=== PATIENT | male | born 1965 | race Caucasian/White ===

== ENCOUNTER 2021-02-05 09:37 | Outpatient (CLI) | payer OTHER, SELFPAY ==
[2021-02-05 11:13] LABS: Alanine Aminotransferase 29 U/L (4-50); Albumin Level 4.4 g/dL (3.5-5.1); Alkaline Phosphatase 48 U/L (38-126); Anion Gap 9 mmol/L (8-16); Aspartate Amino Transferase 36 U/L (17-59); Bilirubin,Total 0.6 mg/dL (0.2-1.3); Blood Urea Nitrogen 11 mg/dL (9-20); Calcium 9.3 mg/dL (8.4-10.2); Carbon Dioxide 26 mmol/L (22-30); Chloride 106 mmol/L (98-107); Cholesterol 212 mg/dL (0-200); Estimated Glomerular Filt Rate > 60; Glucose 254 mg/dL (75-110); HDL Direct 29 mg/dL; Potassium 4.1 mmol/L (3.4-5.0); Sodium 141 mmol/L (137-145); Triglycerides 394 mg/dL (<150)
[2021-02-05 11:15] LABS: Hemoglobin A1C 9.2 % (<5.7)
[2021-02-05 11:27] LABS: LDL Cholesterol Direct 103 mg/dL
[2021-02-05 11:43] LABS: Prostate Specific Antigen 0.6 ng/mL (< OR = 4.0)
== END 2021-02-05 09:38 | disposition home or self-care (01) ==
PROVIDERS: PCP Internal Medicine; Visit Provider Nurse Practitioner
DX: E11.9 Type 2 diabetes mellitus without complications (principal); E78.5 Hyperlipidemia, unspecified; Z12.5 Encounter for screening for malignant neoplasm of prostate
CPT/HCPCS: 36415; 80053; 80061; 83036; 84153; G0103

== ENCOUNTER 2021-09-10 09:49 | Outpatient (CLI) | payer BC, SELFPAY ==
[2021-09-10 10:31] LABS: Hemoglobin A1C 7.4 % (<5.7)
[2021-09-10 10:32] LABS: Alanine Aminotransferase 26 U/L (4-50); Albumin Level 4.5 g/dL (3.5-5.1); Alkaline Phosphatase 39 U/L (38-126); Anion Gap 6 mmol/L (8-16); Aspartate Amino Transferase 29 U/L (17-59); Bilirubin,Total 0.6 mg/dL (0.2-1.3); Blood Urea Nitrogen 19 mg/dL (9-20); Calcium 9.4 mg/dL (8.4-10.2); Carbon Dioxide 24 mmol/L (22-30); Chloride 107 mmol/L (98-107); Cholesterol 155 mg/dL (0-200); Estimated Glomerular Filt Rate > 60; Glucose 164 mg/dL (65-110); HDL Direct 26 mg/dL; Potassium 4.5 mmol/L (3.4-5.0); Sodium 137 mmol/L (137-145); Triglycerides 327 mg/dL (<150)
[2021-09-10 10:43] LABS: LDL Cholesterol Direct 82 mg/dL
== END 2021-09-10 09:50 | disposition home or self-care (01) ==
LOC: ANHLAB 09:51
PROVIDERS: PCP Internal Medicine; Visit Provider Nurse Practitioner
DX: E78.5 Hyperlipidemia, unspecified (principal); E11.9 Type 2 diabetes mellitus without complications
CPT/HCPCS: 36415; 80053; 80061; 83036

== ENCOUNTER 2022-03-11 09:48 | Outpatient (CLI) | payer BC, SELFPAY ==
[2022-03-11 10:45] LABS: Alanine Aminotransferase 28 U/L (6-50); Albumin Level 4.8 g/dL (3.5-5.1); Alkaline Phosphatase 48 U/L (38-126); Anion Gap 13 mmol/L (8-16); Aspartate Amino Transferase 28 U/L (17-59); Bilirubin,Total 0.7 mg/dL (0.2-1.3); Blood Urea Nitrogen 19 mg/dL (9-20); Carbon Dioxide 24 mmol/L (22-30); Chloride 99 mmol/L (98-107); Cholesterol 179 mg/dL (0-200); Estimated Glomerular Filt Rate > 60; Glucose 197 mg/dL (65-110); HDL Direct 29 mg/dL; Potassium 3.9 mmol/L (3.4-5.0); Sodium 136 mmol/L (137-145); Triglycerides 499 mg/dL (<150)
[2022-03-11 10:56] LABS: LDL Cholesterol Direct 70 mg/dL
[2022-03-11 11:16] LABS: Prostate Specific Antigen 0.7 ng/mL (< OR = 4.0)
[2022-03-11 11:28] LABS: Hemoglobin A1C 8.3 % (<5.7)
[2022-03-11 11:29] LABS: Calcium 7.7 mg/dL (8.4-10.2)
[2022-03-11 12:45] LABS: Creatinine Urine 106.2 mg/dL
[2022-03-11 12:49] LABS: MALB Creatinine Ratio 7.6 mg/g (0-30); Microalbumin Urine Random 8.1 mg/L (0-16.7)
== END 2022-03-11 09:49 | disposition home or self-care (01) ==
LOC: ANHLAB 09:50
PROVIDERS: PCP Internal Medicine; Visit Provider Internal Medicine
DX: E11.9 Type 2 diabetes mellitus without complications (principal); I10 Essential (primary) hypertension; Z79.4 Long term (current) use of insulin; Z12.5 Encounter for screening for malignant neoplasm of prostate; E78.5 Hyperlipidemia, unspecified
CPT/HCPCS: 36415; 80053; 80061; 82043; 83036; 84153; G0103

== ENCOUNTER 2022-03-17 08:29 | Outpatient (CLI) | payer BC, SELFPAY ==
[2022-03-17 09:33] LABS: Calcium 9.6 mg/dL (8.4-10.2)
[2022-03-17 09:40] LABS: Parathyroid Intact 26.6 pg/mL (7.5-53.5)
== END 2022-03-17 08:30 | disposition home or self-care (01) ==
LOC: ANHLAB 08:30
PROVIDERS: PCP Internal Medicine; Visit Provider Internal Medicine
DX: E83.51 Hypocalcemia (principal)
CPT/HCPCS: 36415; 82310; 83970

== ENCOUNTER 2022-07-04 10:10 | Emergency (ER) | payer BC, SELFPAY ==
--- NOTE | 2022-07-04 10:19 | ED.URI ---
HPI - URI/Sore Throat General Chief Complaint: Ear Stated Complaint: EARACHE Time Seen by Provider: 07/04/22 10:19 Source: patient and RN notes reviewed History of Present Illness HPI Narrative: Patient is a 57-year-old male who presents to urgent care with complaints of bilateral ear pain, mostly in the left side. Patient also reports postnasal drainage. States that it has been ongoing for approximately 1 week and he has been taking Tylenol, Advil and using the congestion. Patient states that it seems to be worse at night and in the morning. No other acute complaints. No acute distress noted. Patient aware of the plan of care. Some parts of this dictation were generated by voice recognition software and may contain typographical and/or grammatical inaccuracies. Related Data Home Medications Medication Instructions Recorded Confirmed aspirin 81 mg tablet,delayed 81 mg PO DAILY 09/10/21 07/04/22 release (Adult Low Dose Aspirin) multivitamin (Daily Multi-Vitamin 1 tablet PO DAILY 09/10/21 07/04/22 tablet) Allergies Allergy/AdvReac Type Severity Reaction Status Date / Time No Known Allergies Allergy Verified 03/11/22 09:05 Review of Systems Review of Systems: CONSTITUTIONAL: Denies fever, chills, or sweats. EYES: Denies visual changes, redness, or discharge. ENT: Reports nasal drainage, postnasal drainage and bilateral otalgia CARDIOVASCULAR: Denies chest pain, palpitations, or edema. RESPIRATORY: Denies cough or dyspnea. GASTROINTESTINAL: Denies abdominal pain, nausea, vomiting, or diarrhea. GENITOURINARY: Denies dysuria or hematuria. SKIN: Denies rash or itching. MUSCULOSKELETAL: Denies back pain, joint pain, or myalgia. NEUROLOGIC: Denies headache, numbness, or weakness. All other systems reviewed are negative, except as documented in HPI. [facility] Past Medical History Medical History (Updated 07/04/22 @ 11:04 by LUCY Monique) Arthritis Change in bowel function Chest pain Diabetes Gout Heartburn Migraine Sexual dysfunction Stroke Surgical History Surgical History History of cholecystectomy History of tonsillectomy Family History Family History Father Hypertension Heart disease Grandparent Heart disease Grandparent Heart disease Social History Social History Smoking status: Unknown if ever smoked Tobacco type: pipe and cigars Second hand tobacco smoke exposure: Yes Smoking end date: 05/07/21 Alcohol intake: current Alcohol use details: social Substance use: never Substance use type: marijuana 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 There is no relevant family history pertinent to the patient complaint. Exam Narrative: GENERAL: This is a well-nourished, well-developed patient, in no apparent distress. HEAD: normocephalic, atraumatic. EYES: PERRL. Sclera clear/white. Vision is grossly intact. EARS: External ears normal, auditory canals clear and without drainage, [id number] left is station tube dysfunction. TMs normal without perforation. Hearing grossly intact. NOSE: External nose normal with no obvious nasal discharge, mild bilateral erythema nares with yellow rhinorrhea THROAT: Mucous membranes moist, posterior pharynx clear. Moderate postnasal drainage NECK: Neck supple, non-tender without lymphadenopathy CARDIOVASCULAR: Regular rate and rhythm without murmurs, gallops, or rubs. RESPIRATORY: Clear to auscultation. Breath sounds equal bilaterally. No wheezes, rales, or rhonchi. SKIN: warm, intact with no suspicious lesions or rash, good texture and turgor. NEURO: awake, alert, and oriented to per
[2022-07-04 10:47] VITALS: BP 121/85; PULSE 97; RESP 16; TEMP 36.8; O2SAT 98
== END 2022-07-04 11:10 | disposition home or self-care (01) ==
PROVIDERS: Emergency Provider Nurse Practitioner Family; PCP Internal Medicine
DX: H69.82 Other specified disorders of Eustachian tube, left ear (principal); E11.9 Type 2 diabetes mellitus without complications
CPT/HCPCS: 99213; G0463

== ENCOUNTER 2022-07-15 14:18 | Emergency (ER) | payer BC, SELFPAY ==
[2022-07-15 14:29] VITALS: BP 128/71; PULSE 120; RESP 16; TEMP 37.4; O2SAT 97
--- NOTE | 2022-07-15 14:51 | ED.URI ---
HPI - URI/Sore Throat General Chief Complaint: Upper Respiratory Infection Stated Complaint: headache, cough, lt ear hearing loss Time Seen by Provider: 07/15/22 14:51 Source: patient, RN notes reviewed and old records reviewed Mode of arrival: ambulatory Limitations: no limitations History of Present Illness HPI Narrative: 57 year old male who presents to [facility] care with complaints of having left ear pain and feeling like his ear is clogged. Patient reports that he was her on the and started feeling better while taking steroids and then symptoms have returned. He has been unable to follow up with his PCP they never answer the phone when he calls . Patient has also been using Flonase and Benadryl and taking Zyrtec in the morning. Since yesterday he has had increased sinus drainage and headache, cough, and also body aches with low grade fever. Patient reports that he has taken Zyrtec and Advil today and has been in bed most of day. MD elicited complaint: fever (low grade ), cough, sore throat, rhinorrhea, nasal congestion and other (headache) Onset (ago): day(s) (initial increase ear symptoms 7 days, day 2 of body aches, headache, cough.) Pain scale (0-10): 9 Treatments prior to arrival: ibuprofen and other (Zyrtec, Flonase, Benadryl) Related Data Home Medications Medication Instructions Recorded Confirmed aspirin 81 mg tablet,delayed 81 mg PO DAILY 09/10/21 07/15/22 release (Adult Low Dose Aspirin) multivitamin (Daily Multi-Vitamin 1 tablet PO DAILY 09/10/21 07/15/22 tablet) Allergies Allergy/AdvReac Type Severity Reaction Status Date / Time No Known Allergies Allergy Verified 07/15/22 14:39 Review of Systems Review of Systems: CONSTITUTIONAL: Reports malaise, chills, sweats, or fever. EYES: Denies visual changes, redness, or discharge. ENT: Reports rhinorrhea, congestion, sinus pain, otalgia and sore throat. CARDIOVASCULAR: Denies chest pain, palpitations, or edema. RESPIRATORY: Reports cough.? Denies dyspnea. GASTROINTESTINAL: Denies abdominal pain, nausea, vomiting, diarrhea SKIN: Denies rash or itching. MUSCULOSKELETAL: positive myalgia. NEUROLOGIC: Positive headache. All systems reviewed & are unremarkable except as noted in HPI and below PMFSH Past Medical History Medical History (Updated 07/15/22 @ 15:07 by Elvi Arreaga NP) Arthritis Change in bowel function Chest pain Diabetes Gout Heartburn Migraine Sexual dysfunction Stroke Surgical History Surgical History History of cholecystectomy History of tonsillectomy Family History Family History Father Hypertension Heart disease Grandparent Heart disease Grandparent Heart disease Social History Social History Smoking status: Unknown if ever smoked Tobacco type: pipe and cigars Second hand tobacco smoke exposure: Yes Smoking end date: 05/07/21 Alcohol intake: current Alcohol use details: social Substance use: never Substance use type: marijuana 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 There is no relevant family history pertinent to the presenting complaint Exam Narrative: GENERAL: Well-appearing, well-nourished, and in no acute distress. HEAD: Normocephalic EYES: PERRLA, conjunctivae clear ENT: Nares clear, turbinates edematous and erythematous, clear discharge. Mucous membranes moist.Left TM red with membrane bulging, right TM pearly rogel with dull light reflex; no tragal tenderness. Oropharynx erythematous without lesions. Tonsils not enlarged and without exudate, no drooling, no hoarseness, no trismus, uvula midline.posit nasal drainage present. NE
== END 2022-07-15 15:21 | disposition home or self-care (01) ==
PROVIDERS: Emergency Provider Registered Nurse
DX: H66.90 Otitis media, unspecified, unspecified ear (principal); B34.9 Viral infection, unspecified; E11.9 Type 2 diabetes mellitus without complications; Z79.4 Long term (current) use of insulin
CPT/HCPCS: 99213; G0463

== ENCOUNTER 2022-09-19 09:37 | Outpatient (CLI) | payer OTHER, SELFPAY ==
[2022-09-19 10:44] LABS: Alanine Aminotransferase 18 U/L (6-50); Albumin Level 4.2 g/dL (3.5-5.1); Alkaline Phosphatase 71 U/L (38-126); Anion Gap 8 mmol/L (8-16); Aspartate Amino Transferase 19 U/L (17-59); Bilirubin,Total 0.6 mg/dL (0.2-1.3); Blood Urea Nitrogen 15 mg/dL (9-20); Calcium 8.9 mg/dL (8.4-10.2); Carbon Dioxide 26 mmol/L (22-30); Chloride 104 mmol/L (98-107); Cholesterol 155 mg/dL (0-200); Estimated Glomerular Filt Rate > 60; Glucose 253 mg/dL (65-110); HDL Direct 26 mg/dL; Potassium 4.2 mmol/L (3.4-5.0); Sodium 138 mmol/L (137-145); Uric Acid 5.6 mg/dL (3.5-8.5)
[2022-09-19 10:52] LABS: Hemoglobin A1C 8.5 % (<5.7)
[2022-09-19 10:54] LABS: LDL Cholesterol Direct 49 mg/dL
[2022-09-19 11:34] LABS: Triglycerides 601 mg/dL (<150)
== END 2022-09-19 09:38 | disposition home or self-care (01) ==
LOC: ANHLAB 09:38
PROVIDERS: PCP Internal Medicine; Visit Provider Internal Medicine
DX: M10.9 Gout, unspecified (principal); E78.5 Hyperlipidemia, unspecified; E11.9 Type 2 diabetes mellitus without complications; I10 Essential (primary) hypertension; Z79.4 Long term (current) use of insulin
CPT/HCPCS: 36415; 80053; 80061; 83036; 84550

== ENCOUNTER 2022-09-21 15:06 | Outpatient (CLI) | payer OTHER, SELFPAY ==
[2022-09-21 15:52] LABS: Appearance Urine Clear (Clear); Bilirubin Urine Negative (Negative); Blood Urine 1+ (Negative); Color Urine Yellow (Yellow); Glucose Urine UA 3+ mg/dL (Negative); Ketones Urine Negative (Negative); Leukocyte Esterase Ur Negative LEU/UL (Negative); Nitrate Urine Positive (Negative); Protein Urine Negative (Negative); Urobilinogen Urine 0.2 mg/dL (<2.0)
[2022-09-21 15:56] LABS: Creatinine Urine 27.1 mg/dL
[2022-09-21 15:59] LABS: Bacteria Urine Trace /hpf; Mucus Urine Rare /lpf; WBC Urine 16-20 /hpf
[2022-09-21 16:02] LABS: Microalbumin Urine Random 23.3 mg/L (0-16.7)
[2022-09-21 16:20] LABS: Add Urine Microscopic? YES
== END 2022-09-21 15:07 | disposition home or self-care (01) ==
LOC: ANHLAB 15:08
PROVIDERS: PCP Internal Medicine; Visit Provider Internal Medicine
DX: E11.9 Type 2 diabetes mellitus without complications (principal); Z79.4 Long term (current) use of insulin; R10.9 Unspecified abdominal pain
CPT/HCPCS: 81001; 82043; 87086; 87147; 87181; 87186

== ENCOUNTER 2023-01-12 09:52 | Emergency (ER) | payer OTHER, SELFPAY ==
--- NOTE | 2023-01-12 09:55 | ED.URI ---
HPI - URI/Sore Throat General Chief Complaint: Upper Respiratory Infection Stated Complaint: NOSE PAIN/CONGESTION Time Seen by Provider: 01/12/23 10:04 Source: patient, RN notes reviewed and old records reviewed Mode of arrival: ambulatory Limitations: no limitations History of Present Illness HPI Narrative: 57-year-old male presents to the [facility] with complaints of nasal congestion that started over a week ago. patient reporting congestion, pain over the bridge of his nose going up into his forehead and over his eyes. Has taken Zyrtec x1. Tried taking Sudafed as well as ibuprofen. Has a history of hypertension, high cholesterol, diabetes patient denies fevers, chest pain, abdominal pain. Onset (ago): week(s) (1+) Consistency: progressively worsening Severity: mild Able to tolerate fluids by mouth: Yes Exacerbating factors: nothing Relieving factors: nothing Treatments prior to arrival: ibuprofen and cold medicine Related Data Home Medications Medication Instructions Recorded Confirmed aspirin 81 mg tablet,delayed 81 mg PO DAILY 09/10/21 01/12/23 release (Adult Low Dose Aspirin) multivitamin (Daily Multi-Vitamin 1 tablet PO DAILY 09/10/21 10/05/22 tablet) Allergies Allergy/AdvReac Type Severity Reaction Status Date / Time No Known Allergies Allergy Verified 01/12/23 09:59 Review of Systems Review of Systems: All systems reviewed & are unremarkable except as noted in HPI and below Constitutional: Constitutional: Reports no additional constitutional complaints Eyes: Eyes: Reports no additional eye complaints ENT: Reports as per HPI, Reports nasal congestion and Reports sinus pressure Cardiovascular: Cardiovascular: Reports no additional cardiovascular complaints, Denies chest pain and Denies dyspnea Respiratory: Respiratory: Reports no additional respiratory complaints, Denies chest congestion, Denies cough and Denies dyspnea Gastrointestinal: Gastrointestinal: Reports no additional gastrointestinal complaints, Denies abdominal pain, Denies nausea and Denies vomiting Musculoskeletal: Musculoskeletal: Reports no additional musculoskeletal complaints Integumentary/Breasts: Skin/Breast: Reports system reviewed and no additional complaints, except as docu Neurologic: Reports system reviewed and no additional complaints, except as documented Psychiatric: Psychiatric: Reports no additional psychiatric complaints Allergic/Immunologic: Allergic/Immunologic: Reports no additional allergic/immunologic complaints PMFSH Past Medical History Medical History Arthritis Change in bowel function Chest pain Diabetes Gout Heartburn Migraine Sexual dysfunction Stroke Surgical History Surgical History History of cholecystectomy History of tonsillectomy Family History Family History Father Hypertension Heart disease Grandparent Heart disease Grandparent Heart disease Social History Social History Smoking status: Unknown if ever smoked Tobacco type: pipe and cigars Second hand tobacco smoke exposure: Yes Smoking end date: 05/07/21 Alcohol intake: current Alcohol use details: social Substance use: never Substance use type: marijuana Lack of Transportation: No Lack of Food: Never True Current Housing: I Have Housing Concerned About Future Housing: No Difficulty Paying Gas/Electric Bills: No Difficulty Paying for Meds: No Currently Unemployed: No Education: Associate Degree Difficulty w/ Childcare or Family Care: No Living arrangements: with family Occupation/Education: occupation 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
[2023-01-12 09:58] VITALS: BP 116/84; PULSE 93; RESP 16; TEMP 36.3; O2SAT 97
== END 2023-01-12 10:17 | disposition home or self-care (01) ==
PROVIDERS: Emergency Provider Nurse Practitioner; PCP Internal Medicine
DX: J01.10 Acute frontal sinusitis, unspecified (principal); J34.89 Other specified disorders of nose and nasal sinuses; Z87.891 Personal history of nicotine dependence; M19.90 Unspecified osteoarthritis, unspecified site; E11.9 Type 2 diabetes mellitus without complications; M10.9 Gout, unspecified; Z79.82 Long term (current) use of aspirin
CPT/HCPCS: 99213; G0463

== ENCOUNTER 2023-01-23 10:10 | Outpatient (CLI) | payer OTHER, SELFPAY ==
[2023-01-23 10:41] LABS: Basophils Percent Auto 0.4 % (0.2-1.2); Eosinophils Absolute Auto 0.4 K/mm3 (0-0.3); Eosinophils Percent Auto 4.9 % (0-4.4); Hematocrit 46.1 % (42.0-52.0); Hemoglobin 16.1 g/dL (14.0-18.0); Immature Granulocyte Absolute 0.13 K/mm3 (0.00-0.031); Immature Granulocyte Percent A 1.7 % (0-0.5); Lymphocytes Absolute Auto 2.24 K/mm3 (0.9-3.2); Lymphocytes Percent Auto 29.2 % (18.3-44.2); Mean Corpuscular HGB Conc 34.9 g/dl (32-36); Mean Corpuscular Hemoglobin 29.8 pg (26-34); Mean Corpuscular Volume 85.4 fl (80-100); Mean Platelet Volume 8.6 fl (7.4-10.4); Monocytes Absolute Auto 0.8 K/mm3 (0.1-0.6); Neutrophils Absolute Auto 4.1 K/mm3 (1.3-6.7); Neutrophils Percent Auto 53.8 % (45.5-73.1); Platelet Count Result 259 k/mm3 (150-375); Red Cell Distribution Width 13.2 % (11.5-14.5); White Blood Count 7.7 K/mm3 (4.5-10.0)
[2023-01-23 11:11] LABS: Alanine Aminotransferase 35 U/L (6-50); Albumin Level 4.7 g/dL (3.5-5.1); Alkaline Phosphatase 63 U/L (38-126); Anion Gap 7 mmol/L (8-16); Aspartate Amino Transferase 33 U/L (17-59); Bilirubin,Total 0.7 mg/dL (0.2-1.3); Blood Urea Nitrogen 15 mg/dL (9-20); Carbon Dioxide 26 mmol/L (22-30); Chloride 103 mmol/L (98-107); Cholesterol 172 mg/dL (0-200); Estimated Glomerular Filt Rate > 60; Glucose 219 mg/dL (65-110); HDL Direct 25 mg/dL; Potassium 4.2 mmol/L (3.4-5.0); Sodium 136 mmol/L (137-145)
[2023-01-23 11:19] LABS: LDL Cholesterol Direct 40 mg/dL
[2023-01-23 11:32] LABS: Hemoglobin A1C 9.2 % (<5.7)
[2023-01-23 12:22] LABS: Triglycerides 948 mg/dL (<150)
== END 2023-01-23 10:11 | disposition home or self-care (01) ==
LOC: ANHLAB 10:11
PROVIDERS: PCP Nurse Practitioner Family; Visit Provider Nurse Practitioner Family
DX: E66.9 Obesity, unspecified (principal); E11.9 Type 2 diabetes mellitus without complications; I10 Essential (primary) hypertension; Z79.4 Long term (current) use of insulin
CPT/HCPCS: 36415; 80053; 80061; 83036; 85025

== ENCOUNTER 2023-03-09 09:30 | Outpatient (RCR) | payer OTHER, SELFPAY | END 2023-04-20 09:06 | disposition home or self-care (01) | LOC: ANHDMC 09:30 | PROVIDERS: PCP Nurse Practitioner Family; Visit Provider Nurse Practitioner Family | DX: E11.9 Type 2 diabetes mellitus without complications (principal); Z79.4 Long term (current) use of insulin; Z71.89 Other specified counseling | CPT/HCPCS: G0108 ==